=== PATIENT | male | born 1970 | race Caucasian/White ===

== ENCOUNTER → 2018-08-27 10:36 | Outpatient (CLI) | payer MEDICARE, SELFPAY ==
[2018-08-27 11:18] LABS: Basophils % 0.5 % (0.1-2.0); Eosinophils # 0.2 K/mm3 (0.0-0.4); Hematocrit 39.6 % (42.0-52.0); Hemoglobin 12.9 g/dL (14.1-18.0); Lymphocytes # 2.1 K/mm3 (0.7-4.5); Mean Corpuscular HGB Conc 32.7 g/dL (31.8-35.4); Mean Corpuscular Hemoglobin 29.4 pg (27.0-31.2); Mean Platelet Volume 6.7 fl (7.4-10.4); Monocytes # 0.7 K/mm3 (0.1-1.0); Monocytes % 8.5 % (1.7-9.3); Neutrophils % 62.1 % (37.0-80.0); Platelet Count 289 K/mm3 (142-424); Red Cell Distribution Width 13.4 % (11.5-17.5); White Blood Count 8.1 K/mm3 (4.8-10.8)
[2018-08-27 12:02] LABS: Hemoglobin A1C 5.6 % (0.0-7.0)
[2018-08-27 12:19] LABS: Albumin Level 3.7 gm/dL (3.4-5.0); Aspartate Amino Transferase 18 U/L (15-37); Blood Urea Nitrogen 14 mg/dL (7-18); Chloride 106 mmol/L (98-107); Globulin 3.8 gm/dl (1.3-3.2); Total Protein,Serum 7.5 gm/dL (6.4-8.2)
[2018-08-27 12:21] LABS: Alanine Aminotransferase 32 U/L (12-78); Alkaline Phosphatase 92 U/L (46-116); Bilirubin,Total 0.3 mg/dL (0.2-1.0); Calcium 8.3 mg/dL (8.5-10.1); Carbon Dioxide 23 mmol/L (21.0-32.0); Chol/HDL Ratio 4.8 (1-3.5); Cholesterol 154 mg/dL (140-200); Estimated Glomerular Filt Rate 59 ml/min (>60); GFR (African American) 71 ML/MIN (>60); Glucose 93 mg/dL (74-106); HDL Cholesterol 32 mg/dL (27-67); LDL Cholesterol 67 mg/dL (0-130); Sodium 141 mmol/L (136-145); Thyroid Stimulating Hormone 1.97 uIU/ml (0.358-3.740); Triglycerides 277 mg/dL (30-200); VLDL Cholesterol 55 mg/dL (0-40)
== END ==
PROVIDERS: Visit Provider Psychiatry & Neurology Psychiatry
DX: F20.0 Paranoid schizophrenia (principal); Z79.899 Other long term (current) drug therapy
CPT/HCPCS: 36415; 80053; 80061; 83036; 84443; 85025

== ENCOUNTER → 2018-09-10 06:34 | Outpatient (CLI) | payer MEDICARE, SELFPAY ==
--- NOTE | 2018-09-10 06:36 | CA_ITS ---
PROCEDURE: 2-D M-mode and color Doppler study INDICATIONS FOR THE TEST: Chest pain + COPD Heart Murmur Tobacco Smoking Palpitations Fatigue+ Syncope Edema Hypertension+Diabetes Mellitus Rheumatic Fever SOB+MANCIA Obesity+Hyperlipidemia+ Family History HD Additional History PATIENT INFORMATION HEIGHT: 69 WEIGHT:241 GENDER: Male B/P:120/67 2-D/M-MODE INTERPRETATION: 2-D MEASUREMENTS OBSERVED VALUES IN CMS Right Ventricular Dimension (RVDd) 2.3 Interventricular Septum (Thickness)(IVsd) 1.2 Left Ventricular Internal Dimensions(LVIDd) 5.2 Left Ventricular Posterior Wall (Thickness)(LVPWd) 1.0 Aortic Root 3.1 Aortic Cusp Separation 2.2 Left Atrial Dimensions (LAD) 4.7 2D 1. Left atrium is mildly enlarged, left ventricle is normal size, mild concentric left ventricular hypertrophy, visually estimated ejection fraction 55% with no regional wall motion abnormality. 2. The right atrium and right ventricle are normal size and contractility. 3. The aortic valve is minimally thickened and fibrosed. 4. The mitral and tricuspid valve leaflets are minimally thickened 5. The pulmonic valve is poorly visualized. 6. No significant pericardial effusion noted. DOPPLER INTERROGATION: Doppler interrogation of the aortic, mitral and tricuspid valve reveals presence of mild mitral and tricuspid regurgitation, tricuspid regurgitation jet velocity is inadequate for calculation of the right ventricular systolic pressure, grade 1 diastolic dysfunction seen with tissue Doppler evidence of raised left atrial pressure. CONCLUSION: 1. Mildly enlarged left atrium, normal left ventricular size, mild concentric left ventricular hypertrophy, visually estimated ejection fraction 55% with no regional wall motion abnormality, grade 1 diastolic dysfunction seen with tissue Doppler evidence of raised left atrial pressure. 2. Mild mitral and tricuspid regurgitation 3. No significant pericardial effusion noted.
--- NOTE | 2018-09-10 06:36 | NM_ITS ---
History and Indications: Hypertension, hyperlipidemia, family history, chest pain, shortness of breath, palpitations, syncope and fatigue Procedure: Patient received a 0.4 mg of intravenous Lexiscan, resting heart rate was 51 bpm resting blood pressure 125/71 with Lexiscan maximum heart achieved was 65 bpm which is less than 85% of the maximum predicted heart rate and a blood pressure was 107/55. With Lexiscan patient complained of shortness of breath and lightheadedness. Electrocardiogram: Resting electrocardiogram showed sinus bradycardia, with Lexiscan there is less than 1.[address] segment depression noted from the baseline. The EKG portion of the Lexiscan Myoview is nondiagnostic Cardiac stress and resting SPECT images: Cardiac stress and rest SPECT images were obtained using technetium 99 Myoview 31.1 mCi at stress 10.3 mCi at rest gated SPECT further analysis of segmental wall motion and calculation of the ejection fraction also done. Cardiac stress and resting SPECT images show uniform myocardial activity without segmental perfusion abnormality, computer derived ejection fraction is 65% with no wall motion abnormality, right ventricle is normal size and contractility. Conclusion: 1. The EKG portion of the Lexiscan Myoview is nondiagnostic. 2. No scintigraphic evidence of reversible ischemia seen, computer derived ejection fraction is 65% with no regional wall motion abnormality, right ventricle is normal size and contractility. 3. Normal Lexiscan Myoview study.
--- NOTE | 2018-09-10 07:11 | HMH.ITSHM ---
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 []TOPIRAMATE QUETIAPINE PRAZOSIN PAROXETINE PANTOPRAZOLE METHYLPREDNISOLONE BUSPIRONE BUPROPION BISOPROLOL
== END ==
PROVIDERS: PCP Family Medicine Addiction Medicine; Visit Provider Internal Medicine
DX: E66.9 Obesity, unspecified (principal); E78.5 Hyperlipidemia, unspecified; F32.9 Major depressive disorder, single episode, unspecified; I10 Essential (primary) hypertension; I25.10 Atherosclerotic heart disease of native coronary artery without angina pectoris; R07.9 Chest pain, unspecified; R06.02 Shortness of breath
CPT/HCPCS: 78452; 93017; 93306; A9502; J2785

== ENCOUNTER → 2019-03-26 10:03 | Outpatient (CLI) | payer MEDICARE, SELFPAY ==
[2019-03-26 10:21] LABS: Basophils % 0.7 % (0.1-2.0); Eosinophils # 0.2 K/mm3 (0.0-0.4); Eosinophils % 3.6 % (0.1-12.0); Hematocrit 39.3 % (42.0-52.0); Hemoglobin 13.3 g/dL (14.1-18.0); Lymphocytes # 1.9 K/mm3 (0.7-4.5); Lymphocytes % 33.3 % (10-50); Mean Corpuscular HGB Conc 33.9 g/dL (31.8-35.4); Mean Corpuscular Hemoglobin 30.5 pg (27.0-31.2); Mean Corpuscular Volume 90.1 fl (80-94); Monocytes # 0.4 K/mm3 (0.1-1.0); Monocytes % 7.5 % (1.7-9.3); Neutrophils # 3.2 K/mm3 (1.8-7.8); Neutrophils % 54.9 % (37.0-80.0); Platelet Count 258 K/mm3 (142-424); Red Blood Count 4.36 M/mm3 (4.60-6.20); Red Cell Distribution Width 13.5 % (11.5-17.5); White Blood Count 5.8 K/mm3 (4.8-10.8)
[2019-03-26 11:44] LABS: Alanine Aminotransferase 49 U/L (12-78); Albumin Level 3.5 gm/dL (3.4-5.0); Albumin/Globulin Ratio 0.9 (1.1-1.8); Alkaline Phosphatase 82 U/L (46-116); Anion Gap 15.8 mEq/L (5-15); Aspartate Amino Transferase 16 U/L (15-37); Bilirubin,Total 0.3 mg/dL (0.2-1.0); Blood Urea Nitrogen 12 mg/dL (7-18); Calcium 8.3 mg/dL (8.5-10.1); Carbon Dioxide 23 mmol/L (21.0-32.0); Chloride 108 mmol/L (98-107); Chol/HDL Ratio 4.8 (1-3.5); Cholesterol 155 mg/dL (140-200); Creatinine,Serum 1.28 mg/dL (0.70-1.30); Estimated Glomerular Filt Rate 60 ml/min (>60); GFR (African American) 72 ML/MIN (>60); Globulin 3.7 gm/dl (1.3-3.2); Glucose 107 mg/dL (74-106); HDL Cholesterol 32 mg/dL (27-67); LDL Cholesterol 85 mg/dL (0-130); Potassium 3.8 mmoL/L (3.5-5.1); Sodium 143 mmol/L (136-145); Thyroid Stimulating Hormone 1.15 uIU/ml (0.358-3.740); Total Protein,Serum 7.2 gm/dL (6.4-8.2); Triglycerides 191 mg/dL (30-200); VLDL Cholesterol 38 mg/dL (0-40)
[2019-03-26 14:49] LABS: Hemoglobin A1C 5.2 % (0.0-7.0)
== END ==
PROVIDERS: Visit Provider Psychiatry & Neurology Psychiatry
DX: F20.0 Paranoid schizophrenia (principal); Z79.899 Other long term (current) drug therapy
CPT/HCPCS: 36415; 80053; 80061; 83036; 84443; 85025

== ENCOUNTER → 2019-12-11 07:08 | Outpatient (CLI) | payer MEDICARE, SELFPAY ==
[2019-12-11 07:45] LABS: Basophils # 0.1 K/mm3 (0-0.2); Basophils % 0.7 % (0.1-2.0); Eosinophils # 0.3 K/mm3 (0.0-0.4); Eosinophils % 3.3 % (0.1-12.0); Hematocrit 39.9 % (42.0-52.0); Hemoglobin 13.1 g/dL (14.1-18.0); Lymphocytes # 2.7 K/mm3 (0.7-4.5); Lymphocytes % 30.8 % (10-50); Mean Corpuscular HGB Conc 32.8 g/dL (31.8-35.4); Mean Corpuscular Hemoglobin 29.6 pg (27.0-31.2); Mean Corpuscular Volume 90.3 fl (80-94); Mean Platelet Volume 7.3 fl (7.4-10.4); Monocytes # 0.8 K/mm3 (0.1-1.0); Monocytes % 8.9 % (1.7-9.3); Neutrophils # 4.9 K/mm3 (1.8-7.8); Neutrophils % 56.3 % (37.0-80.0); Platelet Count 311 K/mm3 (142-424); Red Blood Count 4.41 M/mm3 (4.60-6.20); Red Cell Distribution Width 13.3 % (11.5-17.5); White Blood Count 8.6 K/mm3 (4.8-10.8)
[2019-12-11 10:01] LABS: Alanine Aminotransferase 34 U/L (12-78); Albumin Level 3.7 gm/dL (3.4-5.0); Albumin/Globulin Ratio 1.1 (1.1-1.8); Alkaline Phosphatase 92 U/L (46-116); Anion Gap 12.8 mEq/L (5-15); Aspartate Amino Transferase 20 U/L (15-37); Bilirubin,Total 0.2 mg/dL (0.2-1.0); Blood Urea Nitrogen 12 mg/dL (7-18); Calcium 8.5 mg/dL (8.5-10.1); Carbon Dioxide 24 mmol/L (21.0-32.0); Chloride 108 mmol/L (98-107); Chol/HDL Ratio 5.4 (1-3.5); Cholesterol 166 mg/dL (140-200); Creatinine,Serum 1.38 mg/dL (0.70-1.30); Estimated Glomerular Filt Rate 55 ml/min (>60); GFR (African American) 66 ML/MIN (>60); Globulin 3.5 gm/dl (1.3-3.2); Glucose 78 mg/dL (74-106); HDL Cholesterol 31 mg/dL (27-67); LDL Cholesterol 89 mg/dL (0-130); Potassium 3.8 mmoL/L (3.5-5.1); Sodium 141 mmol/L (136-145); Thyroid Stimulating Hormone 3.78 uIU/ml (0.358-3.740); Total Protein,Serum 7.2 gm/dL (6.4-8.2); Triglycerides 231 mg/dL (30-200); VLDL Cholesterol 46 mg/dL (0-40)
[2019-12-11 11:48] LABS: Hemoglobin A1C 5.4 % (0.0-7.0)
== END ==
PROVIDERS: Visit Provider Psychiatry & Neurology Psychiatry
DX: F20.0 Paranoid schizophrenia (principal); Z79.899 Other long term (current) drug therapy
CPT/HCPCS: 36415; 80053; 80061; 83036; 84443; 85025

== ENCOUNTER → 2020-09-06 06:44 | Outpatient (CLI) | payer MEDICARE, SELFPAY ==
[2020-09-06 07:06] LABS: Basophils % 0.6 % (0.1-2.0); Eosinophils # 0.2 K/mm3 (0.0-0.4); Eosinophils % 3.4 % (0.1-12.0); Hematocrit 42.7 % (42.0-52.0); Hemoglobin 14.2 g/dL (14.1-18.0); Lymphocytes % 27.9 % (10-50); Mean Corpuscular HGB Conc 33.2 g/dL (31.8-35.4); Mean Corpuscular Hemoglobin 29.3 pg (27.0-31.2); Mean Corpuscular Volume 88.4 fl (80-94); Mean Platelet Volume 6.9 fl (7.4-10.4); Monocytes # 0.6 K/mm3 (0.1-1.0); Monocytes % 8.5 % (1.7-9.3); Neutrophils # 4.3 K/mm3 (1.8-7.8); Neutrophils % 59.7 % (37.0-80.0); Platelet Count 273 K/mm3 (142-424); Red Blood Count 4.83 M/mm3 (4.60-6.20); Red Cell Distribution Width 13.6 % (11.5-17.5); White Blood Count 7.2 K/mm3 (4.8-10.8)
[2020-09-06 08:12] LABS: Hemoglobin A1C 5.3 % (4.0-6.0)
[2020-09-06 21:28] LABS: Chloride 104 mmol/L (98-107); Sodium 141 mmol/L (136-145)
[2020-09-06 21:29] LABS: Potassium 4.1 mmoL/L (3.5-5.1)
[2020-09-06 21:31] LABS: Alanine Aminotransferase 24 U/L (12-78); Albumin Level 4.2 g/dl (3.5-5.0); Albumin/Globulin Ratio 1.3 (1.1-1.8); Alkaline Phosphatase 85 U/L (38-126); Anion Gap 12.1 mEq/L (5-15); Aspartate Amino Transferase 24 U/L (17-59); Bilirubin,Total 0.3 mg/dl (0.2-1.3); Blood Urea Nitrogen 14 mg/dl (9-20); Carbon Dioxide 29 mmol/L (22.0-30.0); Cholesterol 169 mg/dl (140-200); Estimated Glomerular Filt Rate 58 ml/min (>60); GFR (African American) 71 ML/MIN (>60); Globulin 3.3 g/dL (1.3-3.2); Total Protein,Serum 7.5 g/dl (6.3-8.2); Triglycerides 166 mg/dl (30-150); VLDL Cholesterol 33 mg/dL (0-40)
[2020-09-06 21:32] LABS: Calcium 9.1 mg/dl (8.4-10.2); Chol/HDL Ratio 4.3 (1-3.5); Glucose 100 mg/dl (74-100); HDL Cholesterol 39 mg/dl (40-60)
[2020-09-06 21:43] LABS: Direct LDL Cholesterol 106.78 mg/dL (100-129)
== END ==
PROVIDERS: Visit Provider Psychiatry & Neurology Psychiatry
DX: F20.0 Paranoid schizophrenia (principal); Z79.891 Long term (current) use of opiate analgesic; Z79.899 Other long term (current) drug therapy
CPT/HCPCS: 36415; 80053; 80061; 83036; 84443; 85025

== ENCOUNTER 2020-10-20 14:43 | Emergency (ER) | payer MEDICARE, SELFPAY ==
[2020-10-20 15:10] VITALS: BP 138/72; PULSE 99; RESP 19; TEMP 36.6; O2SAT 98; BMI 34.4
--- NOTE | 2020-10-20 15:25 | HMH.EDUTC ---
[facility] Disposition Clinical Impression: Encounter for laboratory testing for COVID-19 virus Disposition: Home, Self-Care Condition on Discharge: Good Instructions: DI for COVID-19 (Suspected or Confirmed ), COVID-19 Viral Test, COVID-19: Testing and Tracing, Preventing the Spread of Coronavirus Discharge Instructions Additional Instructions: You were tested for today for COVID19 your test result should be back in the next 24-48 hours, you may call to the [facility] to see if your test results are back in the next 48 hours [phone] [facility] hours are 9am-9pm You was given a handout with instructions for Self Quarantine and Self isolation for while you wait on test results and what to do if they are positive If you are positive the Health Dept will be contacting you also *Monitor Temp, Over the counter Motrin or Tylenol as directed/as needed Tylenol every 4 hours and Motrin every 6 hours (as long as your family doctor has told you that you can take it) for fever or pain. and straight to ER if unable to lower temp less than 101.0 after medication given Referrals: Favio Tomas MD [Primary Care Provider] - As needed Time of Disposition: 15:29 Medical Decision Making - Alvin Inquiry Pt receiving controlled substance: No Alvin was queried for this patient: No Vital Signs: 10/20/20 15:10 Temperature 97.8 F Temperature Source Oral Pulse Rate [Right Brachial] 99 H Respiratory Rate 19 Blood Pressure [Right Arm] 138/72 Blood Pressure Mean [Right Arm] 94 Blood Pressure Source [Right Arm] Automatic Cuff Blood Pressure Position [Right Arm] Sitting 02 Sat by Pulse Oximetry 98 Oxygen Delivery Method Room Air Orders (Tests/Meds): ORDERS Category Date Time Status Covid-19 Nasal PCR Sendout [facility] 10/20/20 15:08 Ordered [facility] [place] HPI - General Stated complaint: wants covid test Time Seen by Provider: 10/20/20 15:25 Mode of Arrival: Ambulatory Source of Information: Patient Limitations: No Limitations Description of Symptoms (Recalled from Triage Doc. by RN): PATIENT REQUESTING COVID TEST; DENIES SYMPTOMS OR EXPOSURE HEENT Symptoms (Recalled from RN notes): No Resp Symptoms (Recalled from RN notes): No Skin Symptoms (Recalled from RN notes): No MS Symptoms (Recalled from RN notes): No Functional Status (Recalled from RN notes): WNL - History of Present Illness Provider Complaint: Patient states that his was tested earlier today and they recommended that he come in and get tested States that he is not having any symptoms and no complaints just wanted to get tested for COVID - Related Data Previous Rx's Medication Instructions Recorded pantoprazole 40 mg tablet,delayed 40 mg PO DAILY #90 tab 07/22/20 release lisinopril 20 mg tablet 20 mg PO DAILY #90 tab 08/12/20 Allergies Allergy/AdvReac Type Severity Reaction Status Date / Time aspirin [ASPIRIN] Allergy Mild Verified 08/12/20 10:06 Penicillins Allergy Mild Verified 08/12/20 10:06 Sulfa (Sulfonamide Allergy Mild Verified 08/12/20 10:06 Antibiotics) [SULFA (SULFONAMIDE ANTIBIOTICS)] - Worker's Comp Is this a Worker's Comp case?: No [facility] History - Hepatitis A Screen Drug use history?: No High risk sexual behaviors?: No History of sexually transmitted infection?: No Currently employed?: No Childcare worker?: No Do you have indoor plumbing?: Yes Do you have electricity?: Yes Attestation statement:: This patient has been screened for Hepatitis A risk factors. I have reviewed the patient's past medical history: Yes Medical History: Reports:: Coronary Artery Disease, Hyperlipidemia, Hypertension Denies:: Diabetes Mellitus Type 1, Diabetes Mellitus Type 2 Laterality Cases: Bilateral: Tonsillectomy Other Surgeries: Yes: Appendectomy, Cholecystectomy, Other - Social History Smoking Status: Former smoker Tobacco Type: smokeless tobacco Alcohol Intake: never Alcohol Intake Frequency:: other Substance Use Type: denies use O
[2020-10-20 15:30] VITALS: BP 138/72; PULSE 99; RESP 19; TEMP 36.6; O2SAT 98
[2020-10-22 10:56] LABS: Covid-19 Nasal PCR Sendout P&C NEGATIVE
== END 2020-10-20 15:32 | disposition home or self-care (01) ==
PROVIDERS: Emergency Provider Nurse Practitioner; PCP Family Medicine
DX: Z20.828 Contact with and (suspected) exposure to other viral communicable diseases (principal); I10 Essential (primary) hypertension; I25.10 Atherosclerotic heart disease of native coronary artery without angina pectoris; E78.5 Hyperlipidemia, unspecified; Z88.0 Allergy status to penicillin; Z88.2 Allergy status to sulfonamides; Z87.891 Personal history of nicotine dependence
CPT/HCPCS: G0463; 99201; U0004

== ENCOUNTER → 2020-12-26 06:34 | Outpatient (CLI) | payer MEDICARE, SELFPAY ==
--- NOTE | 2020-12-26 06:35 | NM_ITS ---
APPROVED REPORT Exam: Nuclear Stress Test Indication: Chest pain, SOB, CAD, HTN, DM, High cholesterol, Family history Patient Location: Outpatient Stress Tech: Veronica Calvillo [facility] Tech:Eugenie Braden, ARRT, RT (R)(N) Ht: 5 ft 9 in Wt: 252 lbs HR: 59 bpm BP: 111/81 mmHg BSA: 2.28 m2 BMI: 37.2 History: Chest pain, SOB, CAD, HTN, DM, High cholesterol, Family history Procedure: Patient received a 0.4 mg of intravenous Lexiscan, resting heart rate 59 bpm, resting blood pressure 111/81 mmHg, with Lexiscan maximum heart rate achived was 81 bpm which is Less than 85 % of the maximum predicted heart rate and blood pressure was 128/75 mmHg. With Lexiscan, patient denied any complaint of chest pain. Electrocardiogram Resting electrocardiogram showed sinus rhythm, with Lexiscan there is less than 1.[address] segment depression noted from the baseline EKG. The EKG portion of the Lexiscan is nondiagnostic. Cardiac Stress and Resting SPECT Images: Cardiac Stress and Resting SPECT images were obtained using technetium 99m Myoview 30.3 mCi stress and 10.85 mCi at rest. Gated SPECT for analysis of segmental wall motion and calculation of the ejection fraction also done. Cardiac stress and rest SPECT images show uniform myocardial activity without segmental perfusion abnormality, computer derived ejection fraction is 57% with no regional wall motion abnormality, right ventricle is normal size and contractility. Conclusion: 1. The EKG portion of the Lexiscan is nondiagnostic. 2. No scintigraphic evidence of reversible ischemia seen, computer derived ejection fraction 57% with no regional wall motion abnormality, right ventricle is normal size and contractility. 3. Normal Lexiscan Myoview study. Electronically signed by : Fred Mary, 12/26/2020 19:25:52
--- NOTE | 2020-12-26 06:35 | CA_ITS ---
APPROVED REPORT EXAM: Comprehensive 2D, Doppler, and color-flow Echocardiogram Machine Helper: Ellie Pelaez RVT Ht: 5 ft 9 in Wt: 252lbs BSA: 2.28 BP: 139/75 mmHg Indications: CP,SOA,CAD,HTN,HLD,EX SMOKER TDS 2D Dimensions LVOT 2.39 cm (M/F) 1.5-2.5 LA Volume 48.40 mL LA Volume Index 21.22 mL/m2 (M/F) 16-34 M-Mode Dimensions RVDd 3.71 cm (0.9-2.6) LA Diam 4.05 cm (1.9-4.0) LVDd 5.22 cm (3.5-5.7) Ao Diam 3.19 cm (2.0-3.7) LVDs 3.39 cm (3.5-5.7) IVSd 1.03 cm (0.6-1.1) PWd 0.98 cm (0.6-1.1) EF (Teich) 64.00% FS 35.10% EDV (Teich) 130.70 mL ESV (Teich) 47.10 mL LV Diastology E Decel Time 197.00 (160-240 msec) E/A Ratio 0.8 MED E' 6.00 (< 7 cm/sec) E'/MED E' Ratio 12.58 (>14) LAT E' 8.40 (<10 cm/sec) E/LAT E' Ratio 8.99 (>14) Aortic Valve AO Peak GR. 5.60 mmHg Mitral Valve MV E Max Julien. 76.00 (40-130 cm/s) MV A Velocity 101.00 (40-130 cm/s) E/A Ratio 0.75 MV Decel. Time 197.00 (160-240 ms) MV PHT 58.00 ms Pulmonary Valve PV Peak Velocity 85.00 (50-150 cm/s) Tricuspid Valve TR P. Velocity 199.00 cm/s RAP Estimate 10.00 mmHg RVSP 25.80 mmHg Left Ventricle Left atrium is mildly enlarged, left ventricle is normal size, mild concentric left ventricular hypertrophy, visually estimated ejection fraction 55% with no regional wall motion abnormality, grade 1 diastolic dysfunction seen without tissue Doppler evidence of raise left atrial pressure. Right Ventricle Right atrium and right ventricle are mildly enlarged with normal contractility. Aortic Valve Aortic valve is minimally thickened and fibrosed, there is no aortic stenosis or aortic insufficiency. Mitral Valve Mitral valve is grossly normal, there is trace mitral regurgitation. Tricuspid Valve Tricuspid valve grossly normal, there is trace tricuspid regurgitation. Tricuspid regurgitation jet velocity is inadequate for calculation of the right ventricular systolic pressure. Pulmonic Valve Pulmonic valve is poorly visualized. Great Vessels Aortic root is normal size. Pericardium No significant pericardial effusion noted. Conclusion 1. Mild biatrial enlargement, normal left ventricular size, mild concentric left ventricular hypertrophy, visually estimated ejection fraction 55% with no regional wall motion abnormality, grade 1 diastolic dysfunction seen without tissue Doppler evidence of raise left atrial pressure. 2. Mildly enlarged right ventricle with normal contractility. 3. Trace mitral and tricuspid regurgitation. 4. No significant pericardial effusion noted. Electronically signed by : Fred Mary, 12/26/2020 12:30:33
--- NOTE | 2020-12-26 06:35 | CA_ITS ---
APPROVED REPORT Exam: Pharmacologic Technologist: Veronica Calvillo, Ht: 5 ft 9 in Wt: 252 lbs BSA: 2.28 m2 HR: 59 bpm BP: 111/81 mmHg Indications: Chest pain, Shortness of Breath Medical History Medications: Lisinopril,,,,, Pantoprazole,,,,, Buspirone,,,,, BuPROPION,,,,, Fluoxetine,,,,, Quetiapine,,,,, Trazodone,,,,, Stress Test Details Test: LEXISCAN HR Resting HR: 59 bpm Max Heart Rate (APMHR): 170 bpm Max HR Achieved: 82 bpm Target HR (85% APMHR): 144 bpm % of APMHR: 48 Recovery HR: 66 bpm BP Resting BP: 111/81 mmHg Max BP: 134/81 mmHg Recovery BP: 131.0/82.0 mmHg ECG Clinical Exercise duration: 04:00 min Highest Stage Achieved: Stress ECG Conclusion Symptoms: None Arrhythmias/Ectopy: None ST-T Changes: <1.[address] segment changes Conclusion:Non diagnostic EKG Electronically signed by : Fred Mary, 12/26/2020 19:16:09
--- NOTE | 2020-12-26 08:47 | HMH.ITSHM ---
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 []TRAZODONE QUETIAPINE PANTOPRAZOLE LISINOPRIL FLUOXETINE BUSPIRONE BUPROPION
== END ==
LOC: RAD 06:35
PROVIDERS: PCP Family Medicine; Visit Provider Nurse Practitioner Family
DX: E66.9 Obesity, unspecified (principal); E78.5 Hyperlipidemia, unspecified; F32.9 Major depressive disorder, single episode, unspecified; I10 Essential (primary) hypertension; I20.9 Angina pectoris, unspecified; R06.00 Dyspnea, unspecified
CPT/HCPCS: 78452; 93017; 93306; A9502; J2785

== ENCOUNTER 2021-04-26 11:38 | Emergency (ER) | payer MEDICARE, SELFPAY ==
[2021-04-26 11:39] VITALS: BP 142/76; PULSE 64; RESP 16; TEMP 36.7; O2SAT 97; BMI 36.4
[2021-04-26 11:54] VITALS: BMI 36.4
--- NOTE | 2021-04-26 11:54 | HMH.EDGENADL ---
ED Disposition Clinical Impression: Fatigue Qualifiers: Fatigue type: other Qualified Code(s): R53.83 - Other fatigue Disposition: Home, Self-Care Condition on Discharge: Good Referrals: Favio Tomas MD [Primary Care Provider] - 3 days Time of Disposition: 15:24 - Critical Care Critical Care Time: No Attestation: On 04/26/21, the high probability of a clinically significant, sudden or life threatening deterioration of the following system(s) required my full and direct attention, intervention and personal management. The time I documented below is in addition to time spent performing reported procedures but includes the following listed in this critical care notation. Medical Decision Making - Medical Records Medical records reviewed: Yes: I reviewed the patient's medical records. - Alvin Inquiry Pt receiving controlled substance: No Vital Signs: 04/26/21 11:39 04/26/21 12:00 Temperature 98.0 F Temperature Source Oral Pulse Rate 57 L Pulse Rate [Right Radial] 64 Respiratory Rate 16 Blood Pressure 130/73 Blood Pressure [Right Arm] 142/76 H Blood Pressure Mean [Right Arm] 98 Blood Pressure Source [Right Arm] Automatic Cuff Blood Pressure Position [Right Arm] Sitting 02 Sat by Pulse Oximetry 97 98 Oxygen Delivery Method Room Air Room Air - Lab Data Lab results reviewed: Yes: I reviewed the patient's lab results. Lab Results 04/26/21 12:30: WBC 7.0, RBC 4.32 L, Hgb 12.8 L, Hct 37.1 L, MCV 85.9, MCH 29.5, MCHC 34.4, RDW 13.0, Plt Count 276, MPV 7.2 L, Neut % (Auto) 56.1, Lymph % (Auto) 31.6, [place] % (Auto) 8.2, Eos % (Auto) 3.4, Baso % (Auto) 0.7, Neut # (Auto) 4.0, Lymph # (Auto) 2.2, [place] # (Auto) 0.6, Eos # (Auto) 0.2, Baso # (Auto) 0.1 04/26/21 12:30: Troponin I < 0.01, NT-Pro-B Natriuret Pep 57.3 04/26/21 12:30: Sodium 139, Potassium 4.3, Chloride 104, Carbon Dioxide 28, Anion Gap 11.3, BUN 14, Creatinine 1.20, Estimated Creat Clear 115, Estimated GFR 64, Est GFR ( Amer) 77, Glucose 95, Calcium 8.7 04/26/21 12:48: D-Dimer 0.58 H Result diagrams: 04/26/21 12:30 04/26/21 12:30 Orders (Tests/Meds): ED MEDICATIONS Discontinued Medications Generic Name Dose Route Start Last Admin Trade Name Frethaddeus PRN Reason Stop Dose Admin Iopamidol 70 ml 04/26/21 14:06 04/26/21 14:07 Iopamidol-370 (76%);100ml Bottle IV 04/26/21 14:07 70 ml ONCE ONE Administration Sodium Chloride 50 ml 04/26/21 14:06 04/26/21 14:07 0.9 % Sodium Chloride 50 Ml Vial IV 04/26/21 14:07 50 ml ONCE ONE Administration Sodium Chloride 10 ml 04/26/21 14:06 04/26/21 14:07 Sodium Chloride 0.9% 10ml Syr (Rad Only) IV 04/26/21 14:07 10 ml ONCE ONE Administration - Radiology Data #1 Image(s): Chest Image Reviewed: Yes I have reviewed radiologist's interpretation Preliminary Findings: Normal/NAD - CT Data CT Scan: Chest Time Received: 15:[address] Reviewed: Yes: I have viewed the radiologist's interpretation Preliminary Findings: Normal/NAD - ECG Data Tracing #1 I reviewed this ECG and interpreted as documented below: Sinus bradycardia, 54 bpm, no ST elevation or depression, normal intervals, no ectopy. ECG initial impression date: 04/26/21 ECG initial impression time: 12:30 Medical Decision Narrative: 50yo M evaluated for shortness of breath and chest pain. Patient in no acute distress on initial evaluation. He is able to speak in complete sentences. His physical exam is benign. Routine cardiac work-up is been initiated along with a D-dimer. EKG as above. Chest x-ray is benign. D-dimer is mildly elevated therefore the patient is sent for CT angio of the chest. CT angio is negative. Patient has had no chest pain or similar shortness of breath during his observation in the emergency department. At this time he is appropriate and stable for discharge home. He is to follow-up with Dr. Tomas in the next 2 to 3 days. General Adult HPI - General Stated complain
[2021-04-26 12:00] VITALS: BP 130/73; PULSE 57; O2SAT 98
--- NOTE | 2021-04-26 12:24 | XR_ITS ---
PROCEDURE: XR CHEST PORTABLE CLINICAL HISTORY: sob COMPARISON: CR CXR2 CHEST-AP VIEW ONLY from 06/22/2016 CR CXR CHEST(2 VIEWS-NOT PORTABLE) from 07/17/2016 CR CXR CHEST(2 VIEWS-NOT PORTABLE) from 10/08/[address] CHEST W/O CONTRAST from 11/09/2016 FINDINGS: The cardiomediastinal silhouette and pulmonary vascularity are within normal limits. The lungs are clear without infiltrates, suspicious nodules, or pleural effusions. There is minimal postinflammatory scarring right perihilar region. No acute bony abnormalities. IMPRESSION: No acute findings. Dictated by: Dr. Madan Nielson MD 04/26/2021 12:58 Dr. Madan Nielson MD in [place] 04/26/2021 12:58
--- NOTE | 2021-04-26 12:27 | ECG_ITS ---
APPROVED REPORT Exam: Resting ECG HR:54 bpm ECG Measurements Heart Rate 54 AXES [place] 144 P 20 QRSd 90 QRS -9 QT 418 T 25 QTc 396 Conclusion Sinus bradycardia Otherwise normal ECG Electronically signed by : Moody Salas, 04/27/2021 18:05:46
[2021-04-26 12:41] LABS: Basophils # 0.1 K/mm3 (0-0.2); Basophils % 0.7 % (0.1-2.0); Eosinophils # 0.2 K/mm3 (0.0-0.4); Eosinophils % 3.4 % (0.1-12.0); Hematocrit 37.1 % (42.0-52.0); Hemoglobin 12.8 g/dL (14.1-18.0); Lymphocytes # 2.2 K/mm3 (0.7-4.5); Lymphocytes % 31.6 % (10-50); Mean Corpuscular HGB Conc 34.4 g/dL (31.8-35.4); Mean Corpuscular Hemoglobin 29.5 pg (27.0-31.2); Mean Corpuscular Volume 85.9 fl (80-94); Mean Platelet Volume 7.2 fl (7.4-10.4); Monocytes # 0.6 K/mm3 (0.1-1.0); Monocytes % 8.2 % (1.7-9.3); Neutrophils % 56.1 % (37.0-80.0); Platelet Count 276 K/mm3 (142-424); Red Blood Count 4.32 M/mm3 (4.60-6.20)
--- NOTE | 2021-04-26 12:41 | PC.NURSE ---
Rad at bedside
[2021-04-26 12:49] LABS: Anion Gap 11.3 mEq/L (5-15); Blood Urea Nitrogen 14 mg/dl (9-20); Calcium 8.7 mg/dl (8.4-10.2); Carbon Dioxide 28 mmol/L (22.0-30.0); Chloride 104 mmol/L (98-107); Creatinine Clearance Estimated 115 mL/min (50-200); Estimated Glomerular Filt Rate 64 ml/min (>60); GFR (African American) 77 ML/MIN (>60); Glucose 95 mg/dl (74-100); Potassium 4.3 mmoL/L (3.5-5.1); Sodium 139 mmol/L (136-145)
[2021-04-26 13:09] LABS: D-Dimer 0.58 ug/mL (0.0-0.5)
--- NOTE | 2021-04-26 13:16 | CT_ITS ---
PROCEDURE: CT ANGIO CHEST CLINCIAL INDICATION: elevated d-dimer COMPARISON: No exams were available for comparison TECHNIQUE: IV Contrast: 70ML Isovue 370 Axial images obtained with sagittal and coronal reformats. All CT scans at the facility use one or more dose reduction, viz: automated exposure control, ma/kV adjustment per patient size (including targeted exams where dose is matched to indication, i.e. head), or iterative reconstruction technique. FINDINGS: HEART AND MEDIASTINAL STRUCTURES: There is excellent vascular opacification. There is no CT evidence of pulmonary emboli. There is no evidence of aortic dissection. Cardiac size is normal. LUNGS AND PLEURAL SPACES: The lung wayne are well expanded revealing minimal postinflammatory scarring versus atelectasis in the right perihilar region. No acute infiltrate and there is no pleural fluid. BONY STRUCTURES: There are mild multilevel degenerate changes of thoracic spine. UPPER ABDOMEN: Unremarkable. ADDITIONAL FINDINGS: No other significant abnormalities. IMPRESSION: Negative for pulmonary emboli, minimal scarring versus atelectasis right perihilar region Dictated by: Dr. Madan Nielson MD 04/26/2021 14:35 Dr. Madan Nielson MD in [place] 04/26/2021 14:35
[2021-04-26 13:21] LABS: NT Pro Brain Natriuretic Pep. 57.3 pg/mL (0-125)
[2021-04-26 13:26] LABS: Troponin I < 0.01 ng/ml (0.00-0.034)
--- NOTE | 2021-04-26 13:32 | PC.NURSE ---
pt to CT at this time
[2021-04-26 15:20] VITALS: BP 133/83; PULSE 77; RESP 17; TEMP 36.6; O2SAT 97
== END 2021-04-26 15:34 | disposition home or self-care (01) ==
PROVIDERS: Emergency Provider Family Medicine; PCP Family Medicine
DX: R53.83 Other fatigue (principal); R07.9 Chest pain, unspecified; R06.02 Shortness of breath; I10 Essential (primary) hypertension; E78.5 Hyperlipidemia, unspecified; Z88.0 Allergy status to penicillin; Z88.2 Allergy status to sulfonamides
CPT/HCPCS: 36415; 71045; 71275; 80048; 83880; 84484; 85025; 85378; 93005; 99282; Q9967

== ENCOUNTER → 2021-06-07 14:01 | Outpatient (CLI) | payer MEDICARE, SELFPAY | PROVIDERS: Visit Provider Internal Medicine Gastroenterology | DX: Z01.812 Encounter for preprocedural laboratory examination (principal); Z11.52 Encounter for screening for COVID-19; Z12.11 Encounter for screening for malignant neoplasm of colon | CPT/HCPCS: U0003 ==

== ENCOUNTER 2021-06-09 09:24 | Day surgery (SDC) | payer MEDICARE, SELFPAY ==
[2021-06-06 09:37] VITALS: BMI 36.1
[2021-06-09 09:52] VITALS: BP 144/78; PULSE 58; RESP 18; TEMP 36.2; O2SAT 99
--- NOTE | 2021-06-09 10:49 | HMH.ANESCL ---
[facility] Anesthesia Checklist - Patient Identification Patient Identification: Arm Band - Structural Data Admitted From: Home Planned Operative Procedure/s: colonoscopy Consent for Planned Operative Procedure(s) Verified: Yes Verified Documents: Surgical Consent, History and Physical - NPO Status Verified Time NPO: 00:00 - Additional verifications Anesthesia Reactions: No - Airway Assessment C-Spine Mobility Assessed: Yes (mp2) TMJ Mobility Assessed: Yes Dentition: Good Dentition - Neurological Assessment Level of Consciousness: Awake, Alert - Anesthesia Plan Anesthesia Risk discussed: Yes Anesthesia Plan: Verified ASA Class: III Anesthesia Type: MAC [facility] History I have reviewed the patient's past medical history: Yes Medical History: Reports:: Anxiety, Asthma, Coronary Artery Disease, Gastroesophageal Reflux Disease(GERD), Hyperlipidemia, Hypertension Denies:: Cancer, Diabetes Mellitus Type 1, Diabetes Mellitus Type 2, Internal Pacemaker, MRSA, Seizures *Have you ever received a pneumonia vaccine?: No *Have you received a flu vaccine this season?: No Other Medical History: Reports: Other Anesthesia experience/problems:: nac Laterality Cases: Bilateral: Tonsillectomy Other Surgeries: Yes: Appendectomy, Cholecystectomy, Other. No: Pacemaker Amputation: No Fractures: No - *Social History Smoking Status: Former smoker Tobacco Type: smokeless tobacco # Packs/Day (cigarettes): 0 Alcohol Intake: never Alcohol Intake Frequency:: other Substance Use Type: denies use *Occupational Status:: other Housing: house Household Members: spouse *Travel in the last 8 weeks: None Family Hx:: Heart Attack, Coronary Artery Disease
--- NOTE | 2021-06-09 11:17 | P.PCN_ITS ---
[facility] Procedure Note Procedure Note:: Colonoscopy Procedure Report: Colonoscopy Endoscopist: Shan Huntley II, MD Referring physician: Moody Tomas MD Date of Procedure: June 09, 2021 Equipment: Olympus 190 variable stiffness pediatric colonoscope Sedation: MAC sedation Indication: Mr. William is a 50-year-old gentleman who is here for initial screening colonoscopy. He reports no abdominal pain, weight loss, change in his bowel habits or rectal bleeding. He reports no family history of colon cancer. Procedure: Prior to the procedure, a history and physical exam was performed, and patient's medications and allergies were reviewed. The risks, benefits and alternatives of the sedation and procedure were discussed with the patient. All questions were answered and informed consent was obtained. The patient was brought to the procedure room. Patient identification and proposed procedure were verified by the physician and the nurse. The patient was placed in a left lateral decubitus position and the scope was passed under direct vision. Throughout the procedure, the patient's blood pressure, pulse, and oxygen saturations were monitored continuously. The colonoscopy was accomplished without difficulty. The patient tolerated the procedure well. Findings: On digital rectal examination there was normal rectal tone. There were no external hemorrhoids. The prostate was 2+, smooth, soft, symmetric without nodules. The colonoscope was introduced through the anal canal to the rectum and advanced to the cecum. The ileocecal valve and appendiceal orifice were identified. The scope was advanced a short distance into the ileum which appeared grossly normal. The scope was then withdrawn into the colon. The cecum, ascending, transverse, descending, sigmoid and rectum were grossly normal. There were no mucosal abnormalities identified. Upon retroflexion within the rectum there were grade 1-2 internal hemorrhoids.The preparation was fair throughout with [place] Preparation Score of 6-7 out of 9. The cecal time was 10 minutes. Impression: 1. Normal colonoscopy with intubation of the terminal ileum 2. Grade 1-2 internal hemorrhoids 3. Fair preparation Plan: The patient will not require screening/surveillance colonoscopy again for 10 years by ACS guidelines.
[2021-06-09 11:22] VITALS: BP 103/73; PULSE 50; RESP 18; TEMP 36.3; O2SAT 98
[2021-06-09 11:32] VITALS: BP 103/62; PULSE 45; RESP 18; O2SAT 100
[2021-06-09 11:41] VITALS: O2SAT 99
[2021-06-09 11:42] VITALS: BP 103/61; PULSE 52; RESP 18; O2SAT 100
[2021-06-09 12:01] VITALS: BP 147/67; PULSE 48; RESP 18; O2SAT 99
== END 2021-06-09 12:03 | disposition home or self-care (01) ==
LOC: OUTP 09:25
PROVIDERS: PCP Family Medicine; Visit Provider Internal Medicine Gastroenterology
PROC: 0DJD8ZZ Inspection of Lower Intestinal Tract, Via Natural or Artificial Opening Endoscopic (ICD-10-PCS; CPT 45378; principal; 2021-06-09 10:30)
DX: Z12.11 Encounter for screening for malignant neoplasm of colon (principal); K64.0 First degree hemorrhoids; E78.5 Hyperlipidemia, unspecified; I10 Essential (primary) hypertension; K21.9 Gastro-esophageal reflux disease without esophagitis; I25.10 Atherosclerotic heart disease of native coronary artery without angina pectoris; J45.909 Unspecified asthma, uncomplicated; F41.9 Anxiety disorder, unspecified; Z90.49 Acquired absence of other specified parts of digestive tract; Z82.49 Family history of ischemic heart disease and other diseases of the circulatory system; Z88.6 Allergy status to analgesic agent; Z88.0 Allergy status to penicillin; Z88.2 Allergy status to sulfonamides
CPT/HCPCS: G0121

== ENCOUNTER → 2021-10-09 21:03 | Outpatient (CLI) | payer MEDICARE, SELFPAY | LOC: SL 21:05 | PROVIDERS: PCP Family Medicine; Visit Provider Family Medicine | DX: G47.33 Obstructive sleep apnea (adult) (pediatric) (principal); I10 Essential (primary) hypertension | CPT/HCPCS: 95810 ==

== ENCOUNTER → 2021-11-27 09:16 | Outpatient (CLI) | payer MEDICARE, SELFPAY | LOC: RT 09:18 | PROVIDERS: PCP Family Medicine; Visit Provider Nurse Practitioner Family | DX: G47.52 REM sleep behavior disorder (principal) | CPT/HCPCS: 95816; 95819 ==

== ENCOUNTER → 2022-01-30 10:53 | Outpatient (CLI) | payer MEDICARE, SELFPAY ==
[2022-01-30 11:27] LABS: Basophils # 0.1 K/mm3 (0-0.2); Basophils % 1.2 % (0.1-2.0); Eosinophils # 0.3 K/mm3 (0.0-0.4); Eosinophils % 3.8 % (0.1-12.0); Hematocrit 40.9 % (42.0-52.0); Hemoglobin 13.6 g/dL (14.1-18.0); Lymphocytes # 2.1 K/mm3 (0.7-4.5); Lymphocytes % 25.3 % (10-50); Mean Corpuscular HGB Conc 33.2 g/dL (31.8-35.4); Mean Corpuscular Hemoglobin 30.2 pg (27.0-31.2); Mean Corpuscular Volume 90.9 fl (80-94); Mean Platelet Volume 8.1 fl (7.4-10.4); Monocytes # 0.7 K/mm3 (0.1-1.0); Monocytes % 8.8 % (1.7-9.3); Neutrophils % 60.8 % (37.0-80.0); Platelet Count 278 K/mm3 (142-424); Red Cell Distribution Width 13.9 % (11.5-17.5); White Blood Count 8.2 K/mm3 (4.8-10.8)
[2022-01-30 12:15] LABS: Alanine Aminotransferase 30 U/L (12-78); Albumin Level 4.4 g/dl (3.5-5.0); Alkaline Phosphatase 88 U/L (38-126); Anion Gap 11.3 mEq/L (5-15); Aspartate Amino Transferase 24 U/L (17-59); Bilirubin,Direct 0.1 mg/dl (0.0-0.4); Bilirubin,Indirect 0.2 mg/dL (0.0-0.9); Bilirubin,Total 0.3 mg/dl (0.2-1.3); Bilirubin,Unconjugated 0.2 mg/dL (0.0-1.1); Blood Urea Nitrogen 19 mg/dl (9-20); Calcium 9.1 mg/dl (8.4-10.2); Carbon Dioxide 23 mmol/L (22.0-30.0); Chloride 109 mmol/L (98-107); Chol/HDL Ratio 5.1 (1-3.5); Cholesterol 185 mg/dl (140-200); Estimated Glomerular Filt Rate 58 ml/min (>60); GFR (African American) 70 ML/MIN (>60); Glucose 103 mg/dl (74-100); HDL Cholesterol 36 mg/dl (40-60); Potassium 4.3 mmoL/L (3.5-5.1); Sodium 139 mmol/L (136-145); Total Protein,Serum 7.3 g/dl (6.3-8.2); Triglycerides 273 mg/dl (30-150); VLDL Cholesterol 55 mg/dL (0-40)
[2022-01-30 12:26] LABS: Direct LDL Cholesterol 103.95 mg/dL (100-129)
[2022-01-30 12:27] LABS: Free T4 (Free Thyroxine) 0.65 ng/dl (0.78-2.19)
== END ==
LOC: LAB 10:56
PROVIDERS: Visit Provider Physician Assistant
DX: E66.9 Obesity, unspecified (principal); E78.2 Mixed hyperlipidemia; F32.A Depression, unspecified; I10 Essential (primary) hypertension; I25.118 Atherosclerotic heart disease of native coronary artery with other forms of angina pectoris; I63.9 Cerebral infarction, unspecified; R06.00 Dyspnea, unspecified; R20.0 Anesthesia of skin; R42 Dizziness and giddiness; Z68.38 Body mass index [BMI] 38.0-38.9, adult
CPT/HCPCS: 36415; 80048; 80061; 80076; 84439; 84443; 85025

== ENCOUNTER → 2022-02-08 08:15 | Outpatient (CLI) | payer MEDICARE, SELFPAY ==
--- NOTE | 2022-02-08 08:16 | MR_ITS ---
FINAL REPORT CLINICAL HISTORY: possible CVA. rt sided facial droop. rt sided weakness. rt eye blurred vision. symptoms [id number]. headache. 24ml prohance given. FINDINGS: Multiplanar MR imaging of the brain was performed without and with contrast. There is no evidence of intracranial hemorrhage or mass. No abnormal extra-axial fluid collection is seen. The ventricular size is within normal limits. There is no evidence of shift of the midline structures. The posterior fossa and brainstem have an unremarkable appearance. No area of abnormal restricted diffusion is identified. No abnormal contrast enhancement is seen. Normal major vessel vascular flow voids are noted. There is opacification of the right mastoid air cells consistent with right mastoiditis. IMPRESSION: No acute intracranial abnormality identified. Right mastoiditis. Reviewed, Interpreted and Dictated by Neeraj Thomas III, MD Transcribed by Katherine Cline Authenticated by Neeraj Thomas III, MD on 02/08/2022 10:41:46 AM [facility]
--- NOTE | 2022-02-08 09:30 | CA_ITS ---
FINAL REPORT TECHNIQUE: Color Doppler, duplex Doppler and dean scale sonography of the bilateral neck arterial vasculature was performed. Velocities were measured in the carotid arteries. Stenosis evaluation based on the validated velocity criteria. CLINICAL HISTORY: right sided numbness, dizziness, cva,HLD FINDINGS: The peak systolic velocity of the right common carotid artery is 105 cm/s. The peak systolic velocity of the right internal carotid artery is 134 cm/s and end diastolic velocity 52 cm/s. The ICA/CCA ratio is 1.5. No significant amount of plaque is present. The right external carotid artery is patent. The right vertebral artery is patent with antegrade flow. The peak systolic velocity of the left common carotid artery is 88 cm/s. The peak systolic velocity of the left internal carotid artery is 111 cm/s and end diastolic velocity 50 cm/s. The ICA/CCA ratio is 1.3. No significant amount of plaque is present. The left external carotid artery is patent.The left vertebral artery is patent with antegrade flow. IMPRESSION: No evidence of bilateral carotid stenosis. Bilateral patent vertebral arteries with antegrade flow. Reviewed, Interpreted and Dictated by Neeraj Thomas III, MD Transcribed by Alejandra William Authenticated by Neeraj Thomas III, MD on 02/08/2022 12:15:[address] [facility]
--- NOTE | 2022-02-08 09:30 | CA_ITS ---
APPROVED REPORT EXAM: Comprehensive 2D, Doppler, and color-flow Echocardiogram Supervisor Payroll: Ellie Pelaez RVT Ht: 5 ft 9 in Wt: 264lbs BSA: 2.33 BP: 142/74 mmHg Indications: TIA,SOA,CAD,DAVIDA,HLD 2D Dimensions LVOT 2.22 cm (M/F) 1.5-2.5 LA Volume 38.90 mL LA Volume Index 16.76 mL/m2 (M/F) 16-34 M-Mode Dimensions RVDd 3.27 cm (0.9-2.6) LA Diam 4.08 cm (1.9-4.0) LVDd 5.27 cm (3.5-5.7) Ao Diam 3.07 cm (2.0-3.7) LVDs 3.56 cm (3.5-5.7) IVSd 1.15 cm (0.6-1.1) PWd 0.75 cm (0.6-1.1) EF (Teich) 60.30% FS 32.40% EDV (Teich) 133.60 mL TAPSE 2.50 (<1.7) ESV (Teich) 53.00 mL LV Diastology E Decel Time 173.00 (160-240 msec) E/A Ratio 0.8 MED E' 4.40 (< 7 cm/sec) E'/MED E' Ratio 11.77 (>14) LAT E' 4.80 (<10 cm/sec) E/LAT E' Ratio 10.79 (>14) Aortic Valve AO Peak GR. 4.40 mmHg Mitral Valve MV E Max Julien. 52.00 (40-130 cm/s) MV A Velocity 67.00 (40-130 cm/s) E/A Ratio 0.77 MV Decel. Time 173.00 (160-240 ms) MV PHT 51.00 ms Pulmonary Valve PV Peak Velocity 72.00 (50-150 cm/s) Tricuspid Valve TR P. Velocity 178.00 cm/s RAP Estimate 10.00 mmHg RVSP 22.70 mmHg Left Ventricle Left atrium is mildly enlarged, left ventricle is normal size, mild concentric left ventricular hypertrophy, estimated ejection fraction 55% with no regional wall motion abnormality, grade 1 diastolic dysfunction seen without tissue Doppler evidence of raise left atrial pressure. Right Ventricle Right atrium and right ventricle are mildly enlarged with normal contractility. Aortic Valve Aortic valve is minimally thickened and fibrosed, there is no aortic stenosis or aortic insufficiency. Mitral Valve Mitral valve is grossly normal, there is trace mitral regurgitation. Tricuspid Valve Tricuspid grossly normal, there is trace tricuspid regurgitation, tricuspid regurgitation jet velocity is inadequate for calculation of the right ventricular systolic pressure. Pulmonic Valve Pulmonic valve is poorly visualized. Great Vessels Aortic root is normal size. Inferior vena cava is poorly visualized. Pericardium No significant pericardial effusion noted. Conclusion 1. Biatrial enlargement, normal left ventricular size, mild concentric left ventricular hypertrophy, visually estimated ejection fraction 55% with no regional wall motion abnormality, grade 1 diastolic dysfunction seen without tissue Doppler evidence of raise left atrial pressure. 2. Trace mitral and tricuspid regurgitation 3. No significant pericardial effusion 4. Inferior vena cava is poorly visualized. Electronically signed by : Fred Mary MD 02/09/2022 16:37:45
== END ==
LOC: RAD 08:16
PROVIDERS: PCP Family Medicine; Visit Provider Physician Assistant
DX: E66.9 Obesity, unspecified (principal); E78.2 Mixed hyperlipidemia; F32.A Depression, unspecified; I10 Essential (primary) hypertension; I25.118 Atherosclerotic heart disease of native coronary artery with other forms of angina pectoris; I63.9 Cerebral infarction, unspecified; R06.00 Dyspnea, unspecified; R20.0 Anesthesia of skin; R42 Dizziness and giddiness; Z68.38 Body mass index [BMI] 38.0-38.9, adult
CPT/HCPCS: 70553; 93306; 93880; A9576

== ENCOUNTER → 2022-03-15 17:00 | Outpatient (CLI) | payer MEDICARE, SELFPAY ==
--- NOTE | 2022-03-15 17:00 | MR_ITS ---
PROCEDURE INFORMATION: Exam: MR Head Without Contrast Exam date and time: 03/15/2022 5:41 PM Age: 51 years old Clinical indication: Pain; Headache; Additional info: Right sided numbness TECHNIQUE: Imaging protocol: MR of the head without contrast. COMPARISON: MR HEAD/BRAIN WO/W CON 02/08/2022 8:31 AM FINDINGS: Brain: No bleed, mass, or shift of structures. Basilar cisterns are normal. No diffusion restricted segments. Pre-pontine region, suprasellar region, and cerebellar angles are normal. No acute intracranial process. Cerebral ventricles: Normal. No ventriculomegaly. Pituitary gland and sella: Sella normal. Bones/joints: Clivus normal. Calvarium is normal marrow signal. Severe degenerative disc disease at the C3-C4 level. Possible narrowing of the central canal. Paranasal sinuses: Normal as visualized. No acute sinusitis. Mastoid air cells: Opacification of the mastoid air cells on the right. Correlate regarding clinical symptoms of mastoiditis. Previously noted. Orbital cavities: Unremarkable. Soft tissues: Soft tissues are unremarkable Other findings: Diploe is normal. Tectum normal. IMPRESSION: 1. No acute intracranial process. 2. Severe degenerative disc disease at the C3-C4 level. Possible narrowing of the central canal. 3. Opacification of the mastoid air cells on the right. Correlate regarding clinical symptoms of mastoiditis. Previously noted.
== END ==
LOC: RAD 17:00
PROVIDERS: PCP Family Medicine; Visit Provider Family Medicine
DX: R20.0 Anesthesia of skin (principal); R20.2 Paresthesia of skin; H70.001 Acute mastoiditis without complications, right ear
CPT/HCPCS: 70551

== ENCOUNTER → 2022-06-18 06:57 | Outpatient (CLI) | payer MEDICARE, SELFPAY ==
[2022-06-18 08:04] LABS: Basophils # 0.1 K/mm3 (0-0.2); Eosinophils # 0.4 K/mm3 (0.0-0.4); Eosinophils % 4.7 % (0.1-12.0); Hematocrit 39.8 % (42.0-52.0); Hemoglobin 12.7 g/dL (14.1-18.0); Lymphocytes # 2.4 K/mm3 (0.7-4.5); Lymphocytes % 28.6 % (10-50); Mean Corpuscular HGB Conc 31.8 g/dL (31.8-35.4); Mean Corpuscular Hemoglobin 29.5 pg (27.0-31.2); Mean Corpuscular Volume 92.6 fl (80-94); Mean Platelet Volume 7.9 fl (7.4-10.4); Monocytes # 0.7 K/mm3 (0.1-1.0); Monocytes % 7.9 % (1.7-9.3); Neutrophils # 4.9 K/mm3 (1.8-7.8); Neutrophils % 57.8 % (37.0-80.0); Platelet Count 310 K/mm3 (142-424); Red Cell Distribution Width 14.4 % (11.5-17.5); White Blood Count 8.5 K/mm3 (4.8-10.8)
[2022-06-18 08:27] LABS: Alanine Aminotransferase 37 U/L (12-78); Albumin Level 3.9 g/dl (3.5-5.0); Albumin/Globulin Ratio 1.3 (1.1-1.8); Alkaline Phosphatase 107 U/L (38-126); Anion Gap 10.9 mEq/L (5-15); Aspartate Amino Transferase 32 U/L (17-59); Blood Urea Nitrogen 13 mg/dl (9-20); Calcium 8.8 mg/dl (8.4-10.2); Carbon Dioxide 23 mmol/L (22.0-30.0); Chloride 108 mmol/L (98-107); Chol/HDL Ratio 6.8 (1-3.5); Cholesterol 211 mg/dl (140-200); Estimated Glomerular Filt Rate 58 ml/min (>60); GFR (African American) 70 ML/MIN (>60); Glucose 120 mg/dl (74-100); HDL Cholesterol 31 mg/dl (40-60); Potassium 3.9 mmoL/L (3.5-5.1); Sodium 138 mmol/L (136-145); Total Protein,Serum 6.9 g/dl (6.3-8.2); Triglycerides 343 mg/dl (30-150); VLDL Cholesterol 69 mg/dL (0-40)
[2022-06-18 08:31] LABS: Bilirubin,Total 0.1 mg/dl (0.2-1.3)
[2022-06-18 11:50] LABS: Hemoglobin A1C 5.7 % (4.0-6.0)
[2022-06-19 08:25] LABS: Direct LDL Cholesterol 113 mg/dL (100-129)
== END ==
LOC: LAB 06:59
PROVIDERS: PCP Family Medicine; Visit Provider Psychiatry & Neurology Psychiatry
DX: F20.0 Paranoid schizophrenia (principal); Z79.899 Other long term (current) drug therapy
CPT/HCPCS: 36415; 80053; 80061; 83036; 84443; 85025

== ENCOUNTER 2022-07-24 16:50 | Emergency (ER) | payer MEDICARE, SELFPAY ==
[2022-07-24 17:00] VITALS: BP 114/71; PULSE 73; RESP 18; TEMP 36.9; O2SAT 96; BMI 37.8
--- NOTE | 2022-07-24 17:23 | EXP.UTC ---
Discharge Plan Disposition Patient Disposition: Home, Self-Care Condition: Good Prescriptions Prescriptions: New cyclobenzaprine 10 mg Tablet 10 mg PO BID PRN (Reason: Muscle Spasm) Qty: 20 0RF methylprednisolone 4 mg Tablets,Dose Pack 4 mg PO DIRECTED Qty: 21 0RF No Action fluoxetine 40 mg capsule 40 mg PO DAILY buspirone 10 mg tablet 10 mg PO TID bupropion HCl 150 mg tablet extended release 24 hr 150 mg PO DAILY doxepin 25 mg capsule 25 mg PO HS quetiapine 400 mg tablet 600 mg PO HS Nurtec ODT 75 mg tablet,disintegrating 75 mg PO Q OTHER DAY Nurtec ODT 75 mg tablet,disintegrating 75 mg PO Q OTHER DAY Qty: 16 5RF albuterol sulfate 90 mcg/actuation HFA aerosol inhaler 2 puff INHALATION QID PRN (Reason: shortness of breath or wheezing) Qty: 8.5 10RF ropinirole 2 mg tablet 2 mg PO DAILY quetiapine 200 mg tablet 100 mg PO DAILY Label Comments: TAKE 1 TABLET BY MOUTH ONCE DAILY IN THE MORNING cyclobenzaprine 10 mg tablet 10 mg PO HS PRN levothyroxine [Synthroid] 50 mcg tablet 50 mcg PO DAILY Qty: 90 3RF fluticasone propionate [Flonase Allergy Relief] 50 mcg/actuation spray,suspension 2 spray NS BID Qty: 16 3RF Rx Instructions: administer into each nostril metoprolol succinate 25 mg tablet extended release 24 hr 25 mg PO DAILY Qty: 90 4RF pantoprazole 40 mg tablet,delayed release (DR/EC) See Rx Instructions .ROUTE .COMPLEX Qty: 90 2RF Dose Instruction: Take 1 tablet by mouth once daily Rx Instructions: Take 1 tablet by mouth once daily lisinopril 20 mg tablet See Rx Instructions .ROUTE .COMPLEX Qty: 90 0RF Dose Instruction: Take 1 tablet by mouth once daily Rx Instructions: Take 1 tablet by mouth once daily budesonide-formoterol 10.2 GM HFA aerosol inhaler 2 puff INHALATION BID Referrals Follow up/Referrals: Favio Tomas MD [Primary Care Provider] - See instructions Activity Restrictions/Add. Instructions Additional Instructions/Restrictions: Go home and rest. It would be best if you rested tomorrow too. No heavy lifting. No twisting. Take the oral medications as directed. Follow up with your regular doctor. The muscle relaxer (cyclobenzaprine--Flexeril) will make you drowsy, so don't drive or operate heavy machinery after taking it. GO TO THE ER FOR ANY WORSENING SYMPTOMS OR CONCERN, ESPECIALLY BOWEL OR BLADDER ISSUES, SADDLE AREA NUMBNESS, FEVER, ETC Clinical Impressions Clinical Impression: Low back pain, Radiculopathy Instructions Patient Instructions: DI for Low Back Pain, Cyclobenzaprine Discharge ED Provider: Chuck Joe [facility] [place] HPI General Stated complaint: covid test Mode of Arrival: Ambulatory Source of Information: Patient Limitations: No Limitations Time Seen by Provider: 07/24/22 17:22 Description of Symptoms (Recalled from Triage Doc. by RN): BODYACHES, WEAKNESS AND HEADACHE HEENT Symptoms (Recalled from RN notes): Yes Resp Symptoms (Recalled from RN notes): No Skin Symptoms (Recalled from RN notes): No MS Symptoms (Recalled from RN notes): Yes Functional Status (Recalled from RN notes): NA History of Present Illness Provider Complaint: He states that he has had middle back pain for the past 2 days. At this time he is having right leg weakness also. He has had a headache for the past 2 days, but he has frequent headaches since he had a CVA in Dec, 2021. He denies hand or arm weakness. He refuses transfer to the ER for stroke evaluation. He states that he has had low back pain like this before and he would like to be treated for it. Related Data Home Medications Medication Instructions Recorded Confirmed bupropion HCl 150 mg 24 hr tablet, 150 mg PO DAILY mood 12/13/20 07/16/22 extended release buspirone 10 mg tablet 10 mg PO TID mood 12/13/20 07/16/22 fluoxetine 40 mg capsule 40 mg PO DAILY mood 12/13/20 0
--- NOTE | 2022-07-24 17:52 | PC.NURSE ---
REPORT GIVEN TO Arlette BEY RN FOR FURTHER EVALUATION IN ED
--- NOTE | 2022-07-24 18:16 | PC.NURSE ---
PT REFUSES TO BE SEEN IN ED FOR FURTHER EVALUATION
[2022-07-24 18:37] VITALS: BP 114/71; PULSE 73; RESP 18; TEMP 36.9; O2SAT 96
== END 2022-07-24 18:40 | disposition home or self-care (01) ==
PROVIDERS: Emergency Provider Nurse Practitioner Family; PCP Family Medicine
DX: M54.16 Radiculopathy, lumbar region
CPT/HCPCS: 99212; C9803; G0463; U0003; U0005

== ENCOUNTER → 2022-08-14 07:50 | Outpatient (CLI) | payer MEDICARE, SELFPAY ==
--- NOTE | 2022-08-14 07:50 | MR_ITS ---
FINAL REPORT CLINICAL HISTORY: degeneration of C3 C4 / myelopathy. RIGHT SIDED NECK PAIN. INTERMITTENT PAIN DOWN RIGHT ARM. NO INJURY OR TRAUMA. HEADACHE. FINDINGS: Multiplanar MR imaging of the cervical spine was performed without contrast. On the sagittal T2-weighted images, disc degeneration is seen throughout with endplate change at multiple levels. There is no evidence of fracture. The vertebral alignment is normal. The cervical spinal cord has an unremarkable appearance without evidence of mass, edema or syrinx. The cervicomedullary junction is normal. C2-3: Central disc protrusion indents the thecal sac. There is mild right neural foraminal narrowing. C3-4: Annular bulge and uncovertebral osteophytes are present. There is a central disc protrusion which indents the thecal sac. There is severe bilateral neural foraminal narrowing. There is moderate central canal stenosis with an AP diameter of the thecal sac of 6 mm. C4-5: An annular bulge and uncovertebral osteophytes are present. There is mild left neural foraminal narrowing. There is mild central canal stenosis with an AP diameter of the thecal sac of 9 mm. C5-6: Disc osteophyte complex is present. There is a small left paracentral disc protrusion with moderate right and severe left neural foraminal narrowing. There is mild central canal stenosis with an AP diameter of the thecal sac of 8 mm. C6-7: Right paracentral disc protrusion is present which indents the thecal sac. There is mild central canal stenosis with an AP diameter of the thecal sac of 9 mm. C7-T1: An annular bulge and uncovertebral osteophytes are present. There is a left foraminal disc protrusion with mild bilateral neural foraminal narrowing. T1-2: Uncovertebral osteophytes are present. There is a left foraminal disc protrusion with mild left neural foraminal narrowing. IMPRESSION: Multilevel disc protrusions with multilevel central canal stenosis. Degenerative disc disease and spondylosis as above. Reviewed, Interpreted and Dictated by Neeraj Thomas III, MD Transcribed by Katherine Cline Authenticated and [facility]
== END ==
LOC: RAD 07:50
PROVIDERS: PCP Family Medicine; Visit Provider Family Medicine
DX: M54.2 Cervicalgia; M79.601 Pain in right arm; G95.89 Other specified diseases of spinal cord
CPT/HCPCS: 72141; 76376

== ENCOUNTER → 2022-11-02 11:52 | Outpatient (CLI) | payer MEDICARE, SELFPAY | PROVIDERS: PCP Nurse Practitioner Family; Visit Provider Nurse Practitioner Family | DX: R05.9 Cough, unspecified (principal) ==

== ENCOUNTER → 2022-11-02 16:19 | Outpatient (CLI) | payer MEDICARE, SELFPAY ==
[2022-11-02 17:23] LABS: Adenovirus,PCR Not Detected (NotDetected); Bordetella Pertussis Not Detected (NotDetected); Chlamydophila Pneumoniae, PCR Not Detected (NotDetected); Coronavirus 229E Not Detected (NotDetected); Coronavirus NL63 Not Detected (NotDetected); Coronavirus OC43 Not Detected (NotDetected); Coronovirus HKU1,PCR Not Detected (NotDetected); Human Metapneumovirus Not Detected (NotDetected); Influenza A, PCR Not Detected (NotDetected); Influenza AH1, 2009 Not Detected (NotDetected); Influenza AH1, PCR Not Detected (NotDetected); Influenza AH3,PCR Not Detected (NotDetected); Influenza B, PCR Not Detected (NotDetected); Mycoplasma Pneumoniae, PCR Not Detected (NotDetected); Parainfluenza 1, PCR Not Detected (NotDetected); Parainfluenza 2, PCR Not Detected (NotDetected); Parainfluenza 3, PCR Not Detected (NotDetected); Parainfluenza 4, PCR Not Detected (NotDetected); Respiratory Syncytial Virus Not Detected (NotDetected); Rhinovirus/Enterovirus Not Detected (NotDetected)
[2022-11-02 19:35] LABS: Coronavirus 19, PCR Detected (NotDetected)
== END ==
LOC: LAB.DROPOF 16:20
PROVIDERS: PCP Nurse Practitioner Family; Visit Provider Nurse Practitioner Family
DX: R05.9 Cough, unspecified (principal); U07.1 COVID-19
CPT/HCPCS: 87581; 87632; 87798; C9803; U0003; U0005

== ENCOUNTER 2022-11-08 08:30 | Outpatient (RCR) | payer MEDICARE, SELFPAY | END 2022-11-08 08:35 | disposition home or self-care (01) | LOC: PT 08:30 | PROVIDERS: PCP Family Medicine; Visit Provider Neurological Surgery | DX: M54.2 Cervicalgia; G95.89 Other specified diseases of spinal cord; M79.601 Pain in right arm | CPT/HCPCS: 20560; 97010; 97012; 97014; 97110; 97163; 97164; G0283 ==

== ENCOUNTER → 2022-12-07 07:15 | Outpatient (CLI) | payer MEDICARE, SELFPAY | PROVIDERS: PCP Family Medicine; Visit Provider Nurse Practitioner Family | DX: Z01.812 Encounter for preprocedural laboratory examination (principal); Z11.52 Encounter for screening for COVID-19 | CPT/HCPCS: C9803; U0003; U0005 ==

== ENCOUNTER → 2023-05-13 23:08 | Outpatient (CLI) | payer MEDICARE, SELFPAY ==
[2023-05-13 19:25] LABS: Basophils # 0.1 K/mm3 (0-0.2); Basophils % 0.6 % (0.1-2.0); Eosinophils # 0.2 K/mm3 (0.0-0.4); Hematocrit 41.3 % (42.0-52.0); Hemoglobin 13.1 g/dL (14.1-18.0); Lymphocytes # 2.3 K/mm3 (0.7-4.5); Lymphocytes % 29.4 % (10-50); Mean Corpuscular HGB Conc 31.8 g/dL (31.8-35.4); Mean Corpuscular Volume 91.2 fl (80-94); Mean Platelet Volume 9.3 fl (7.4-10.4); Monocytes # 0.8 K/mm3 (0.1-1.0); Neutrophils # 4.5 K/mm3 (1.8-7.8); Platelet Count 366 K/mm3 (142-424); Red Blood Count 4.53 M/mm3 (4.60-6.20); Red Cell Distribution Width 13.8 % (11.5-17.5); White Blood Count 7.9 K/mm3 (4.8-10.8)
[2023-05-13 19:37] LABS: Alanine Aminotransferase 20 U/L (12-78); Albumin Level 4.6 g/dl (3.5-5.0); Albumin/Globulin Ratio 1.5 (1.1-1.8); Alkaline Phosphatase 126 U/L (38-126); Anion Gap 15.3 mEq/L (5-15); Aspartate Amino Transferase 26 U/L (17-59); Bilirubin,Total 0.2 mg/dl (0.2-1.3); Blood Urea Nitrogen 15 mg/dl (9-20); Calcium 9.2 mg/dl (8.4-10.2); Carbon Dioxide 25 mmol/L (22.0-30.0); Chloride 108 mmol/L (98-107); Chol/HDL Ratio 4.7 (1-3.5); Cholesterol 189 mg/dl (140-200); Estimated Glomerular Filt Rate 53 ml/min (>60); GFR (African American) 64 ML/MIN (>60); Globulin 3.1 g/dL (1.3-3.2); Glucose 83 mg/dl (74-100); HDL Cholesterol 40 mg/dl (40-60); Potassium 4.3 mmoL/L (3.5-5.1); Sodium 144 mmol/L (136-145); Total Protein,Serum 7.7 g/dl (6.3-8.2); Triglycerides 156 mg/dl (30-150); VLDL Cholesterol 31 mg/dL (0-40)
[2023-05-13 19:48] LABS: Direct LDL Cholesterol 105.74 mg/dL (100-129)
== END ==
PROVIDERS: PCP Family Medicine; Visit Provider Family Medicine
DX: E78.5 Hyperlipidemia, unspecified (principal); I25.10 Atherosclerotic heart disease of native coronary artery without angina pectoris
CPT/HCPCS: 80053; 80061; 85025

== ENCOUNTER 2024-05-22 09:46 | Outpatient (CLI) | payer MEDICARE, SELFPAY ==
[2024-05-22 18:32] LABS: Basophils # 0.1 K/mm3 (0-0.2); Eosinophils # 0.4 K/mm3 (0.0-0.4); Eosinophils % 4.2 % (0.1-12.0); Hematocrit 41.6 % (42.0-52.0); Hemoglobin 13.7 g/dL (14.1-18.0); Lymphocytes # 2.1 K/mm3 (0.7-4.5); Lymphocytes % 25.5 % (10-50); Mean Corpuscular HGB Conc 32.8 g/dL (31.8-35.4); Mean Corpuscular Hemoglobin 29.8 pg (27.0-31.2); Mean Platelet Volume 9.3 fl (7.4-10.4); Monocytes # 0.9 K/mm3 (0.1-1.0); Monocytes % 10.4 % (1.7-9.3); Platelet Count 298 K/mm3 (142-424); Red Blood Count 4.58 M/mm3 (4.60-6.20); Red Cell Distribution Width 14.7 % (11.5-17.5); White Blood Count 8.4 K/mm3 (4.8-10.8)
[2024-05-22 18:43] LABS: Chloride 109 mmol/L (98-107)
[2024-05-22 18:44] LABS: Potassium 4.1 mmoL/L (3.5-5.1); Sodium 139 mmol/L (136-145)
[2024-05-22 18:46] LABS: Alanine Aminotransferase 36 U/L (12-78); Albumin Level 3.8 g/dl (3.5-5.0); Albumin/Globulin Ratio 1.2 (1.1-1.8); Alkaline Phosphatase 103 U/L (38-126); Anion Gap 8.1 mEq/L (5-15); Aspartate Amino Transferase 30 U/L (17-59); Bilirubin,Total 0.3 mg/dl (0.2-1.3); Blood Urea Nitrogen 13 mg/dl (9-20); Carbon Dioxide 26 mmol/L (22.0-30.0); Estimated Glomerular Filt Rate 63 ml/min (>60); GFR (African American) 76 ML/MIN (>60); Globulin 3.2 g/dL (1.3-3.2)
[2024-05-22 18:47] LABS: Calcium 8.9 mg/dl (8.4-10.2); Chol/HDL Ratio 6.3 (1-3.5); Cholesterol 203 mg/dl (140-200); Glucose 104 mg/dl (74-100); HDL Cholesterol 32 mg/dl (40-60); Triglycerides 333 mg/dl (30-150); VLDL Cholesterol 67 mg/dL (0-40)
[2024-05-22 18:58] LABS: Direct LDL Cholesterol 117.68 mg/dL (100-129)
[2024-05-22 19:16] LABS: Thyroid Stimulating Hormone 1.36 uIU/mL (0.465-4.68)
[2024-05-22 19:58] LABS: Prostate Specific Ag Screen 0.8 ng/ml (0.0-4.0)
== END 2024-05-22 23:59 | disposition home or self-care (01) ==
LOC: LAB.DROPOF 05-25 10:30
PROVIDERS: PCP Family Medicine; Visit Provider Family Medicine
DX: I25.10 Atherosclerotic heart disease of native coronary artery without angina pectoris (principal); R42 Dizziness and giddiness; Z12.5 Encounter for screening for malignant neoplasm of prostate; E78.5 Hyperlipidemia, unspecified; R53.83 Other fatigue
CPT/HCPCS: 80050; 80053; 80061; 84443; 85025; G0103

== ENCOUNTER 2024-12-12 10:56 | Emergency (ER) | payer MEDICARE, SELFPAY ==
[2024-12-12 12:10] VITALS: BP 150/90; PULSE 66; RESP 22; TEMP 36.8; O2SAT 98; BMI 37.9
--- NOTE | 2024-12-12 12:12 | XR_ITS ---
PROCEDURE INFORMATION: Exam: XR Chest Exam date and time: 12/12/2024 12:07 PM Age: 53 years old Clinical indication: Cough and shortness of breath; Additional info: Cough [id number], SOA TECHNIQUE: Imaging protocol: Radiologic exam of the chest. Views: 2 views. COMPARISON: CT ANGIO CHEST 26/04/2021 14:01 FINDINGS: Lungs: Unremarkable. No consolidation. Pleural spaces: Unremarkable. No pleural effusion. No pneumothorax. Heart/Mediastinum: Unremarkable. No cardiomegaly. Bones/joints: Partially imaged cervical spine hardware. Intraperitoneal space: Right upper quadrant clips. IMPRESSION: No acute findings.
--- NOTE | 2024-12-12 12:48 | ED_ITS ---
Discharge Plan Disposition Patient Disposition: Home, Self-Care Condition: Good Prescriptions Prescriptions: New prednisone 20 mg tablet 20 mg PO BID Qty: 10 0RF No Action fluoxetine 40 mg capsule 40 mg PO DAILY buspirone 10 mg tablet 10 mg PO TID bupropion HCl 150 mg tablet extended release 24 hr 150 mg PO DAILY quetiapine 400 mg tablet 600 mg PO HS levothyroxine 50 mcg tablet See Rx Instructions .ROUTE .COMPLEX Qty: 90 0RF Dose Instruction: Take 1 tablet by mouth once daily Rx Instructions: Take 1 tablet by mouth once daily phentermine [Adipex-P] 37.5 mg tablet 37.5 mg PO DAILY Qty: 30 0RF Rx Instructions: must administer 30 minutes before or 1-2 hours after breakfast for weight loss albuterol sulfate 90 mcg/actuation HFA aerosol inhaler 2 puff INHALATION QID PRN (Reason: shortness of breath or wheezing) Qty: 8.5 10RF quetiapine 200 mg tablet 100 mg PO DAILY Patient Comments: TAKE 1 TABLET BY MOUTH ONCE DAILY IN THE MORNING prazosin 1 mg capsule PO Patient Comments: TAKE 2 CAPSULES BY MOUTH IN THE EVENING metoprolol succinate 25 mg tablet extended release 24 hr 25 mg PO DAILY Qty: 90 3RF methylprednisolone [Medrol (Calvin)] 4 mg tablets,dose pack See Rx Instructions PO PER PKG DIR Qty: 21 0RF Rx Instructions: PO PER PKG DIR benzonatate 200 mg capsule 200 mg PO TID Qty: 90 0RF pantoprazole 40 mg tablet,delayed release (DR/EC) See Rx Instructions .ROUTE .COMPLEX Qty: 90 3RF Dose Instruction: Take 1 tablet by mouth once daily Rx Instructions: Take 1 tablet by mouth once daily Referrals Follow up/Referrals: Favio Tomas MD [Primary Care Provider] - See instructions Activity Restrictions/Add. Instructions Additional Instructions/Restrictions: Tylenol and ibuprofen as needed for pain or fever Humidifier/vaporizer/hot steamy shower Follow-up with primary care. Follow-up immediately in the ER of the [facility] for new or worsening symptoms or no noticeable improvement over the next 48-72 hours. Stop smoking Inhaler every 4-6 hours as needed. Should help open airways improved cough, wheezing, shortness of breath Start steroids today. Helps with inflammation therefore coughing and wheezing. Follow directions on package. Clinical Impressions Clinical Impression: Asthma exacerbation Instructions Patient Instructions: DI for Asthma -- Adult Print Language Print Language: French Discharge ED Provider: Lakshmi ([facility])Kavya [facility] [place] HPI General Stated complaint: cough Mode of Arrival: Ambulatory Source of Information: Patient Time Seen by Provider: 12/12/24 12:30 Description of Symptoms (Recalled from Triage Doc. by RN): COUGH FOR MONTH, GETS SOA WITH MOVEMENT, HORRIBLE AT NIGHTTIME HEENT Symptoms (Recalled from RN notes): No Resp Symptoms (Recalled from RN notes): Yes Skin Symptoms (Recalled from RN notes): No MS Symptoms (Recalled from RN notes): No Functional Status (Recalled from RN notes): WNL History of Present Illness Provider Complaint: 53-year-old male presents for cough for over a month, short of air with movement, and cough worse at nighttime. Patient denies fever Related Data Home Medications ?Medication ?Instructions ?Recorded ?Confirmed bupropion HCl 150 mg 24 hr tablet, 150 mg PO DAILY mood 12/13/20 09/11/24 extended release buspirone 10 mg tablet 10 mg PO TID mood 12/13/20 09/11/24 fluoxetine 40 mg capsule 40 mg PO DAILY mood 12/13/20 09/11/24 quetiapine 200 mg tablet 100 mg PO DAILY 02/06/22 09/11/24 quetiapine 400 mg tablet 600 mg PO HS 02/06/22 09/11/24 prazosin 1 mg capsule mg PO 08/12/24 09/11/24 Previous Rx's ?Medication ?Instructions ?Recorded albuterol sulfate 90 mcg/actuation 2 puff inhalation QID PRN 04/25/21 aerosol inhaler shortness of breath or wheezing #8.5 grams metoprolol succinate 25 mg 25 mg PO DAILY #90 tabs 04/15/24 tablet,extended release 24 hr levothyroxine 50 mcg tablet See Rx Instructions .Route 09/11/24 .COMPLEX #90 tabs phentermine 37.5 mg tablet 37.5 mg PO DAILY #30 tabs 09/11/24 (Adipex-P) benzonatate 200 mg capsule 200 mg PO TID #90 caps 11/13/24 methylprednisolone 4 mg tablets in See Rx Instructions PO PER PKG DIR 11/13/24 a dose pack (Medrol (Calvin)) #21 tabs pantoprazole 40 mg tablet,delayed See Rx Instructions .Route 11/17/24 release .COMPLEX #90 tabs prednisone 20 mg tablet 20 mg PO BID #10 tabs 12/12/24 Allergies Allergy/AdvReac Type Severity Reaction Status Date / Time aspirin (ASPIRIN) Allergy Mild Verified 09/11/24 08:22 Penicillins Allergy Mild Verified 09/11/24 08:22 Sulfa (Sulfonamide Allergy Mild Verified 09/11/24 08:22 Antibiotics) (SULFA (SULFONAMIDE ANTIBIOTICS)) Worker's Comp Is this a Worker's Comp case?: No [facility] Disclaimer: The information contained in this section may have been updated after the patient was seen, as this information can be updated by other users. Medical History , [employer]) Effusion of neck Dizziness Vertigo Chronic mastoiditis of right side TIA (transient ischemic attack) Seizures Myocardial infarction Migraine GERD (gastroesophageal reflux disease) Asthma Anxiety Slurred speech CVA (cerebral vascular accident) Right sided numbness CAD (coronary artery disease) Obesity HLD (hyperlipidemia) Hypertensive disorder Depressive disorder Coronary arteriosclerosis Surgical History , [employer]) History of tonsillectomy Family History , [employer]) Coronary artery disease Heart attack Social History , [employer]) Smoking Status: Former smoker tobacco type: smokeless tobacco alcohol intake: never substance use type: denies use current occupational status: disabled Travel in the last 8 weeks: None household members: spouse housing: house current occupational exposures/hazards: No caffeine: Yes Have you lived/traveled outside [place] in past 30 days?: No Contact w/someone who lives/traveled outside US past 30 days?: No Exposure to someone with infectious disease in past 14 days?: No Do you have a fever (greater than 100.4 F or 38 C)?: No Have you tested positive for COVID-19: No Exposed to someone with COVID-19 in past 14 days?: No Do you have a sore throat?: No Do you have a cough?: Yes Do you have any weakness?: No Do you have any diarrhea?: No Are you experiencing any unusual bleeding?: No Do you have any muscle aches/pain?: No Do you have any abdominal pain?: No Are you experiencing loss of taste or smell?: No ROS Obtained: Yes Systems reviewed as appropriate & no additional complaints except as documented Respiratory Respiratory: Reports system reviewed and no additional complaints, except as documented, Reports as per HPI, Reports shortness of breath, Reports cough and Reports non-productive cough Physical Exam General General appearance: alert and in no apparent distress Eye Eye exam: Present normal appearance ENT ENT exam: Present normal exam, normal oropharynx, mucous membranes moist and TM's normal bilaterally Respiratory Respiratory exam: Present wheezes Cardiovascular Cardiovascular exam: Present regular rate and normal rhythm Neurological Exam Neurological exam: Present alert and oriented X3 Skin Skin exam: Present warm and intact Medical Decision Making Medical Records Medical records reviewed: Yes I reviewed the patient's medical records. Screening: Per USPSTF and CDC recommendations, given the prevalence of disease in our region, it is our hospital?s policy to screen for HIV and viral Hepatitis for all patients aged 18 and over and those with ongoing risk factors. Alvin Inquiry Pt receiving controlled substance: No Vital Signs: 12/12/24 12:10 Temperature 98.2 F Temperature Source Oral Pulse Rate [Left Radial] 66 Respiratory Rate 22 Blood Pressure [Left Arm] 150/90 H Blood Pressure Mean [Left Arm] 110 02 Sat by Pulse Oximetry 98 Orders (Tests/Meds): ORDERS Category Date Time Status XR chest 2V Stat Exams 12/12/24 12:12 Taken Radiology Data #1: Image(s): Chest Image Reviewed: Yes I have reviewed radiologist's interpretation Preliminary Findings: Normal/NAD
[2024-12-12 13:02] VITALS: BP 150/90; PULSE 66; RESP 22; TEMP 36.8
== END 2024-12-12 13:09 | disposition home or self-care (01) ==
PROVIDERS: Emergency Provider Nurse Practitioner Family; PCP Family Medicine
DX: J45.901 Unspecified asthma with (acute) exacerbation (principal)
CPT/HCPCS: 71046; 99212; G0381

== ENCOUNTER 2025-06-23 10:14 | Outpatient (CLI) | payer MEDICARE, SELFPAY ==
--- OUTSIDE RECORDS SUMMARY | 2025-06-23 10:34 | XMS_ITS | Clinical Summary ---
Author Organization [facility] Address [address] [place] [address] Care Team Providers Care Cobbler Sole Name Role Phone Favio Tomas MD Primary Care Provider [phone] Mónica Villa MD Unavailable [phone] Stacie Shannon ACADEMIC GUIDANCE SPECIALIST Unavailable [phone] Allergies Active Allergy Reactions Criticality Noted Date Comments Aspirin Unknown - Patient st ates they do not know rxn details Low 10/02/2022 Childhood allergy Penicillins Unknown - Patient st ates they do not know rxn details Low 10/02/2022 Childhood allergy Sulfa Drugs Rash Low 12/07/2022 Medications pantoprazole (Protonix) 40 MG EC tablet Take 40 mg by mouth 1 (one) time each day. 2 Active busPIRone (Buspar) 10 MG tablet Take 10 mg by mouth 3 (three) times a day. 2 Active FLUoxetine (PROzac) 40 MG capsule Take 40 mg by mouth 1 (one) time each day. 2 Active doxepin (SINEquan) 25 MG capsule Take 25 mg by mouth every night. 2 Active metoprolol succinate XL (Toprol-XL) 25 MG 24 hr tablet Take 25 mg by mouth 1 (one) time each day. 2 Active buPROPion XL (Wellbutrin XL) 150 MG 24 hr tablet Take 150 mg by mouth 1 (one) time each day in the morning. 2 Active albuterol 108 (90 Base) MCG/ACT inhaler Inhale 2 puffs every 6 (six) hours if needed for wheezing. Active budesonide-form oterol (Symbicort) 160-4.5 MCG/ACT inhaler Inhale 2 puffs 2 (two) times a day. Rinse mouth with water after use to reduce aftertaste and incidence of candidiasis. Do not swallow. Active levothyroxine (Synthroid, Levoxyl) 50 MCG tablet 3 Active methocarbamol (Robaxin) 750 MG tabletIndicatio ns:Muscle spasm Take 1 tablet (750 mg total) by mouth 2 (two) times a day if needed for muscle spasms (Pain) for up to 14 days. 28 tablet 3 3 Active QUEtiapine (SEROquel) 400 MG tablet Take 400 mg by mouth 1 (one) time each day. 3 Active Active Problems Problem Noted Date Diagnosed Date Severe obesity (BMI 35.0-39.9) with comorbidity 12/25/2022 Resolved Problems Problem Noted Date Diagnosed Date Resolved Date Spinal stenosis, cervical region 11/15/2022 12/14/2022 Overview (11/15/2022): Added automatically from request for surgery [id number] Cervical myelopathy 11/15/2022 12/14/19 Overview (11/15/2022): Added automatically from request for surgery [id number] Family History Medical History Relation Name Comments Coronary artery disease Other 1 Other cancer Other 2 Relation Name Status Comments Other 1 Other 2 Social History Tobacco Use Types Packs/Day Years Used Date Smoking Tobacco: Never Smokeless Tobacco: Current Snuff Tobacco Cessation:Ready to Q uit: No Alcohol Use Standard Drinks/Week Comments Never 0 (1 standard drink = 0.6 oz pur e alcohol) Sex and Gender Information Value Date Recorded Sex Assigned at Male 12/11/2022 4:31 PM EST Legal Sex Male 6:11 PM EDT Gender Identity Male 12/11/2022 4:31 PM EST Sexual Orientation Straight 01/07/2023 8: 25 AM EST Last Filed Vital Signs Vital Sign Reading Time Taken Comments Blood Pressure 121/78 04/19/2023 8:11 AM EDT Pulse 71 01/21/2023 8:21 AM EDT Temperature 36.4 C (97.5 F) 12/14/2022 11:59 AM EST Respiratory Rate 19 12/25/2022 8:12 AM EST Oxygen Saturation 95% 01/21/2023 8:21 AM EDT Inhaled Oxygen Concentration - - Weight 113 kg (250 lb) 04/19/2023 8:11 AM EDT Height 175.3 cm (5' 9 ) 04/19/2023 8:11 AM EDT Body Mass Index 36.92 04/19/2023 8:11 AM EDT Plan of Treatment Health Maintenance Due Date Last Done Comments [facility]-Depression Screening 1969 [facility]-HIV Screening 1969 [facility]-Hepatitis C Screening 1969 [facility]-Medicare Annual Wellness (AWV) 1969 [facility]-Infant/Child/Adol SDOH Screenings 1969 [facility]- SDOH Screenings 1987 [facility]-Adult SDOH Screenings 1987 [facility]-DTaP,Tdap,and Td Vaccines (1 - Tdap) 1988 [facility]-Hepatitis B Vaccines (1 of 3 - 19+ 3-dose series) 1988 CT Colonography 2014 Colonoscopy 2014 FIT-DNA 2014 FIT 2014 FOBT 2014 Sigmoidoscopy 2014 [facility]-Colorectal Cancer Screening 2014 [facility]-Pneumococcal Vaccine: 50+ Years (1 of 1 - PCV) 2019 [facility]-Zoster Vaccines (1 of 2) 2019 [id number] Vaccine (3 - Moderna risk series) 09/13/2021 08/16/2021, 07/18/2021 [facility]-Influenza Vaccine (#1) 2025 [facility]-Diabetes: Hemoglobin A1C Discontinued 11/20/2022 [facility]-Obesity Intervention Completed 04/19/ 023, 01/21/2023, 12/25/2022, Additional history exists HPV Vaccines Aged Out No longer eligi ble based on patient's age to complete this topic [facility]-HIB Vaccines Aged Out No longer e ligible based on patient's age to complete this topic [facility]-Hepatitis A Vaccines Aged Out No longer eligible based on patient's age to complete this topic [facility]-IPV Vaccines Aged Out No longer e ligible based on patient's age to complete this topic [facility]-Rotavirus Vaccines Aged Out No lo nger eligible based on patient's age to complete this topic Medical Devices Implanted Type Area Upholstery Bundler Device Identifier Shelf Expiration Date Model / Serial / Lot Graft Vivigen 1cc - [id number] Implanted:Qty: 1 on 12/11/2022 by Mónica Villa MD at [facility]575379 12/07/2023 [id number] / / [id number] Screw 4.0 Ply 3.5x14 - [id number] Implanted:Qty: 5 on 12/11/20[facility]-[id number] 12/11/2027 [id number] / / Screw 4.0 Ply 3.5x16 - [id number] Implanted:Qty: 3 on 12/11/2022 [facility] -[id number] 12/11/2027 [id number] / / Set Screw - [id number] Implanted:Qty: 8 on 12/11/2022 by [facility]-[id number] 12/11/2027 [id number] / / Petey Ti 4.0x055 Shea - [id number] Implanted:Qty: 2 on 12/11/2022 by [facility] [employer] -[id number] 12/11/2027 [id number] / / Procedures Procedure Name Priority Date/Time Associated Diagnosis Comments HEMOGLOBIN A1C Routine 11/20/2022 9:28 AM EST Preop examination Prediabetes from Last 3 Months or Most Recently Relevant to Health Maintenance Results * (ABNORMAL) Hemoglobin A1c (11/20/2022 9:28 AM EST) Hemoglobin A1c 5.8(H) <5.7 % 11/20/2022 11:27 AM EST [facility] Blood Venous blood specimen / Unknown Venipuncture / Unknown 11/20/2022 9:28 AM EST 11/20/2022 9:28 AM EST Narrative [facility] - 11/20/2022 11:27 AM EST HA1C Interpretive Data: Diagnosis of Diabetes: Diabetic > or = 6.5% Pre-diabetic 5.7 to 6.4% Non-diabetic < or = 5.6% Glycemic Targets for Type I and Type II Diabetics: Non- Adults <7.0% Adults <6.0% Children and Adolescents <7.5% Source: [place] [employer]. Standards of medical care in diabetes,2017. Diabetes Care.2017:40 (suppl 1):S1-S135. HbA1c assay performed by an ion-exchange chromatography method that is certified traceable to the DCCT. Stacie Shannon APRN LAB BLOOD ORDERABLES Final Result [facility] [address] [place] [id number] from Last 3 Months or Most Recently Relevant to Health Maintenance Insurance [facility] MEDICARE Advance Directives * Full Code (Latest Code Status on File) Date Activated Date Inactivated Comments 12/11/2022 8:23 PM 12/14/2022 3:15 PM Question Answer Comments Patient has decision-making capacity? Yes Care Teams Cobbler Sole Relationship Specialty Start Date End Date Favio Tomas MD PCP - General 10/02/22 Mónica Villa MD [address] [address] Surgeon Neurosurgery 11/09/22 Stacie Shannon APRN [id number] [place] [address] Nurse Practitioner 12/25/22
--- OUTSIDE RECORDS SUMMARY | 2025-06-23 10:34 | XMS_ITS | Encounter Summary ---
Author Organization [facility] Address [address] [place] [address] Care Team Providers Care Passenger Conductor Name Role Phone Favio Tomas MD Primary Care Provider [phone] Mónica Villa MD Unavailable [phone] Stacie Shannon APRN Unavailable [phone] Reason for Referral * Consultation (Routine) - Closed Specialty Diagnoses / Procedures Referred By Raphael govea Referred To Contact Neurosurgery Diagnoses Disease of spinal cord (CMS/HCC) Favio Tomas MD Phone: tel: fax: Referral ID Status Reason Start Date Expiration Date V isits Requested Visits Authorized [id number] Closed Specialty Services Required 08/27/2022 02/26/2024 1 1 Encounter Details Date Type Department Care Team (Late st Contact Info) Description 08/27/2022 [facility] [address] [place] [address] Favio Tomas MD [address] [place] [address] Disease of spinal cord (CMS/HCC) (Primary Dx) Social History Tobacco Use Types Packs/Day Years Used Date Smoking Tobacco: Former Sex and Gender Information Value Date Recorded Sex Assigned at Male 12/11/2022 4:31 PM EST Legal Sex Male 6:11 PM EDT Gender Identity Male 12/11/2022 4:31 PM EST Sexual Orientation Straight 01/07/2023 8: 25 AM EST documented as of this encounter Plan of Treatment Scheduled Referrals Name Type Priority Associated Diagnoses Order Schedule Ambulatory Referral to Neurosurgery Outpatient Referral Routine Disease of spinal cord (CMS/HCC) Expected: 08/27/2022 (Approximate), Expires: 10/27/2022 documented as of this encounter Visit Diagnoses Diagnosis Disease of spinal cord (CMS/HCC)- Primary Unspecified disease of spinal cord documented in this encounter Care Teams Passenger Conductor Relationship Specialty Start Date End Date Favio Tomas MD PCP - General 10/02/22 Mónica Vilal MD [address] [place] [address] Surgeon Neurosurgery 11/09/22 Stacie Shannon APRN [address] [place] [address] Nurse Practitioner 12/25/22 documented as of this encounter
[2025-06-23 10:52] LABS: Hematocrit 41.4 % (42.0-52.0); Hemoglobin 13.7 g/dL (14.1-18.0); Immature Granulocytes % 0.3 %; Mean Corpuscular HGB Conc 33.1 g/dL (31.8-35.4); Mean Corpuscular Hemoglobin 28.8 pg (27.0-31.2); Mean Corpuscular Volume 87.2 fl (80-94); Nucleated Red Blood Cells % 0 %; Platelet Count 272 K/mm3 (142-424); Red Blood Count 4.75 M/mm3 (4.60-6.20); Red Cell Distribution Width-SD 39.8 fL; White Blood Count 6.9 K/mm3 (4.8-10.8)
[2025-06-23 11:30] LABS: Alanine Aminotransferase 23 U/L (12-78); Albumin Level 4.3 g/dl (3.5-5.0); Albumin/Globulin Ratio 1.7 (1.1-1.8); Alkaline Phosphatase 100 U/L (38-126); Anion Gap 11.9 mEq/L (5-15); Aspartate Amino Transferase 30 U/L (17-59); Bilirubin,Total 0.5 mg/dl (0.2-1.3); Blood Urea Nitrogen 15 mg/dl (9-20); Calcium 8.7 mg/dl (8.4-10.2); Carbon Dioxide 25 mmol/L (22.0-30.0); Chloride 108 mmol/L (98-107); Cholesterol 115 mg/dl (140-200); Creatinine,Serum 1.00 mg/dl (0.66-1.25); Estimated Glomerular Filt Rate 78 ml/min (>60); GFR (African American) 94 ML/MIN (>60); Globulin 2.6 g/dL (1.3-3.2); Glucose 109 mg/dl (74-100); HDL Cholesterol 35 mg/dl (40-60); Potassium 3.9 mmoL/L (3.5-5.1); Sodium 141 mmol/L (136-145); Total Protein,Serum 6.9 g/dl (6.3-8.2); Triglycerides 95 mg/dl (30-150)
[2025-06-23 11:47] LABS: T4 (Thyroxine) 6.9 ug/dl (5.53-11.0)
[2025-06-23 11:48] LABS: Free T4 (Free Thyroxine) 0.89 ng/dl (0.78-2.19)
[2025-06-23 12:00] LABS: Thyroid Stimulating Hormone 1.33 uIU/mL (0.465-4.68)
[2025-06-23 12:41] LABS: Hemoglobin A1C 5.6 % (4.0-6.0)
== END 2025-06-23 23:59 | disposition home or self-care (01) ==
LOC: LAB 10:15
PROVIDERS: PCP Family Medicine; Visit Provider Nurse Practitioner Family
DX: Z01.89 Encounter for other specified special examinations (principal)
CPT/HCPCS: 36415; 80053; 80061; 83036; 84436; 84439; 84443; 85025